=== PATIENT | female | born 1945 | race African-American/Black ===

== ENCOUNTER 2018-07-13 18:21 | Inpatient (IN) | payer MEDICARE, MEDICAID ==
[~2018-07-13] VITALS: Ht 154.9 cm; Wt 67.1 kg
[~2018-07-13 18:21] MED LIST: ALBU2.5V13 NEB; ALPR-341 PO; AMLO10TA4 PO; ASPI-1159 PO; ATOR20TA65 PO; CARV6.2548 PO; CLOP75TA33 PO; DEXL60CA3 PO; FLUT1DIS3 IH; GUAI480S11 PO; MONT10TA24 PO; VALS160T2 PO
[2018-07-13] MEDS ORDERED: FAMOTIDINE 20MG/2ML VIAL IV STA (18:47)
[2018-07-13] MEDS ORDERED: ONDANSETRON HCL 4MG/2ML INJ IV STA (18:47)
[2018-07-13] MEDS ORDERED: SODIUM CHLORIDE 0.9% 1,000 ML IV ONE (18:47)
[2018-07-13] MEDS ORDERED: MORPHINE SULFATE 4 MG/ML CPJ (NOT FOR IM USE) IV STA (18:47)
[2018-07-13 19:32] LABS: BASOPHILS % 0.4 % (0.0-2.0); EOSINOPHILS % 14.1 % (0.0-5.0); HEMATOCRIT. 36.7 % (36.0-48.0); HEMOGLOBIN. 12.1 g/dL (12.0-16.0); LYMPHOCYTES % 22.7 % (20.0-50.0); MEAN PLATELET VOLUME 8.9 fl (7.4-10.4); MONOCYTES % 8.1 % (2.0-8.0); NEUTROPHILS % 54.7 % (40.0-76.0); PLATELET 259 x1000/uL (130-400); RED CELL DISTRIBUTION WIDTH 13.5 % (11.6-14.6)
[2018-07-13 19:37] LABS: INR 1.1; PROTHROMBIN TIME 10.8 sec (9.1-11.1)
[2018-07-13 19:40] LABS: CHLORIDE 107 mEq/L (98-107)
[2018-07-13 21:01] LABS: CLARITY URINE CLEAR (CLEAR); COLOR URINE YELLOW (YELLOW); KETONES URINE NEGATIVE (NEGATIVE); LEUKOCYTE ESTERASE URINE NEGATIVE (NEGATIVE); NITRITE URINE NEGATIVE (NEGATIVE); OCCULT BLOOD URINE NEGATIVE (NEGATIVE); PROTEIN URINE NEGATIVE (NEGATIVE); SPECIFIC GRAVITY URINE 1.004 (1.005-1.030); UROBILINOGEN URINE 0.2 E.U./dL (0.2-1.0)
[2018-07-13] MEDS ORDERED: IOHEXOL-350 100 ML BOTTLE ONE (22:52)
[2018-07-14] VITALS (7 sets, daily range): BP systolic 117–158; BP diastolic 58–82
[2018-07-14] MEDS ORDERED: ALPR-340 PO (02:11)
[2018-07-14] MEDS ORDERED: CARV12.545 PO (02:11)
[2018-07-14] MEDS ORDERED: DEXL30CA3 PO (02:11)
[2018-07-14] MEDS ORDERED: IRBE150T51 PO (02:15)
[2018-07-14] MEDS ORDERED: ALPRAZOLAM 0.5 MG TABLET PO PRN (04:00)
[2018-07-14] MEDS: PANTOPRAZOLE 40MG DR TABLET PO SCH (05:54)
[2018-07-14 05:56] LABS: CHLORIDE 109 mEq/L (98-107)
[2018-07-14 06:00] LABS: PHOSPHORUS 3.2 mg/dL (2.5-4.9)
[2018-07-14 06:02] LABS: LDL CHOLESTEROL 38 mg/dL (5-100)
[2018-07-14 06:03] LABS: HDL CHOLESTEROL 61 mg/dL (40-59)
[2018-07-14 06:07] LABS: BASOPHILS % 0.3 % (0.0-2.0); EOSINOPHILS % 12.6 % (0.0-5.0); HEMATOCRIT. 35.1 % (36.0-48.0); HEMOGLOBIN. 11.8 g/dL (12.0-16.0); LYMPHOCYTES % 18.3 % (20.0-50.0); MEAN CORPUSCULAR HEMOGLOBIN 31.5 pg (28.0-32.0); MEAN CORPUSCULAR VOLUME 93.4 fL (81.0-99.0); MEAN PLATELET VOLUME 8.8 fl (7.4-10.4); MONOCYTES % 6.9 % (2.0-8.0); NEUTROPHILS % 61.9 % (40.0-76.0); PLATELET 256 x1000/uL (130-400); RED BLOOD CELL COUNT 3.76 mill/uL (4.2-5.4); RED CELL DISTRIBUTION WIDTH 13.8 % (11.6-14.6)
[2018-07-14 06:08] LABS: T4 FREE 1.24 ng/dL (0.76-1.46)
[2018-07-14 06:09] LABS: TOTAL IRON BINDING CAPACITY 287 ug/dL (250-450)
[2018-07-14] MEDS: LOSARTAN POTASSIUM 50 MG TABLET PO SCH (08:39)
[2018-07-14] MEDS: CARVEDILOL 12.5MG TABLET PO SCH ×2 (08:39→21:37)
[2018-07-14] MEDS: AMLODIPINE 10MG TABLET PO SCH (08:39)
[2018-07-14] MEDS ORDERED: MAGNESIUM CITRATE 300ML SOLUTION PO PRN (09:00)
[2018-07-14] MEDS ORDERED: NON FORMULARY PATIENT HOME MED EA PO SCH ×2 (09:00)
[2018-07-14] MEDS: ASPIRIN 81MG TABLET PO SCH (12:22)
[2018-07-14] MEDS: CLOPIDOGREL 75MG TABLET PO SCH (12:22)
[2018-07-14] MEDS: ACETAMINOPHEN 325MG TABLET PO PRN (13:19)
[2018-07-14] MEDS: ATORVASTATIN CALCIUM 20MG TABLET PO SCH (21:37)
[2018-07-14] MEDS: MONTELUKAST SODIUM 10MG TABLET PO SCH (21:37)
[2018-07-15] VITALS: BP 111/74
[2018-07-15 04:00] VITALS: BP 111/74
[2018-07-15 06:19] LABS: BASOPHILS % 0.2 % (0.0-2.0); EOSINOPHILS % 7.7 % (0.0-5.0); HEMATOCRIT. 37.9 % (36.0-48.0); HEMOGLOBIN. 12.6 g/dL (12.0-16.0); LYMPHOCYTES % 12.8 % (20.0-50.0); MEAN CORPUSCULAR HEMOGLOBIN 30.9 pg (28.0-32.0); MEAN CORPUSCULAR VOLUME 93.4 fL (81.0-99.0); MONOCYTES % 5.2 % (2.0-8.0); NEUTROPHILS % 74.1 % (40.0-76.0); PLATELET 266 x1000/uL (130-400); RED BLOOD CELL COUNT 4.06 mill/uL (4.2-5.4); RED CELL DISTRIBUTION WIDTH 13.9 % (11.6-14.6)
[2018-07-15] MEDS: PANTOPRAZOLE 40MG DR TABLET PO SCH (06:32)
[2018-07-15 07:29] LABS: CHLORIDE 104 mEq/L (98-107)
[2018-07-15 08:00] VITALS: BP 150/82
[2018-07-15] MEDS: AMLODIPINE 10MG TABLET PO SCH (08:53)
[2018-07-15] MEDS: CLOPIDOGREL 75MG TABLET PO SCH (08:53)
[2018-07-15] MEDS: ASPIRIN 81MG TABLET PO SCH (08:55)
[2018-07-15] MEDS: LOSARTAN POTASSIUM 50 MG TABLET PO SCH (08:55)
[2018-07-15] MEDS: CARVEDILOL 12.5MG TABLET PO SCH ×2 (08:55→21:03)
[2018-07-15] MEDS: IPRATROPIUM/ALBUTEROL 0.5-3(2.5)MG/3ML NEB HHN PRN (12:01)
[2018-07-15 12:10] VITALS: BP 125/77
[2018-07-15] MEDS: ONDANSETRON HCL 4MG/2ML INJ IV PRN (12:17)
[2018-07-15 16:00] VITALS: BP 148/67
[2018-07-15 20:00] VITALS: BP 131/59
[2018-07-15] MEDS: MONTELUKAST SODIUM 10MG TABLET PO SCH (21:01)
[2018-07-15] MEDS: ATORVASTATIN CALCIUM 20MG TABLET PO SCH (21:01)
[2018-07-16] VITALS: BP 111/54
[2018-07-16 04:00] VITALS: BP 136/73
[2018-07-16 06:03] LABS: CHLORIDE 104 mEq/L (98-107)
[2018-07-16 06:12] LABS: PHOSPHORUS 3.2 mg/dL (2.5-4.9)
[2018-07-16 06:34] LABS: HEMATOCRIT. 34.2 % (36.0-48.0); HEMOGLOBIN. 11.4 g/dL (12.0-16.0); MEAN CORPUSCULAR HEMOGLOBIN 31.2 pg (28.0-32.0); MEAN CORPUSCULAR VOLUME 93.3 fL (81.0-99.0); PLATELET 240 x1000/uL (130-400); RED BLOOD CELL COUNT 3.66 mill/uL (4.2-5.4); RED CELL DISTRIBUTION WIDTH 13.5 % (11.6-14.6)
[2018-07-16] MEDS: PANTOPRAZOLE 40MG DR TABLET PO SCH (07:00)
[2018-07-16 08:00] VITALS: BP 127/69
[2018-07-16 08:42] LABS: PLATELET ESTIMATE NORMAL
[2018-07-16] MEDS: AMLODIPINE 10MG TABLET PO SCH (08:59)
[2018-07-16] MEDS: CLOPIDOGREL 75MG TABLET PO SCH (08:59)
[2018-07-16] MEDS: CARVEDILOL 12.5MG TABLET PO SCH ×2 (09:00→21:28)
[2018-07-16] MEDS: LOSARTAN POTASSIUM 50 MG TABLET PO SCH (09:00)
[2018-07-16] MEDS: ASPIRIN 81MG TABLET PO SCH (09:00)
[2018-07-16 12:00] VITALS: BP 138/61
[2018-07-16] MEDS: ONDANSETRON HCL 4MG/2ML INJ IV PRN (12:42)
[2018-07-16] MEDS: ACETAMINOPHEN 325MG TABLET PO PRN (13:59)
[2018-07-16 16:11] VITALS: BP 135/64
[2018-07-16] MEDS ORDERED: MAGNESIUM 4 G PREMIX 100 ML IV NR (18:00)
[2018-07-16 20:00] VITALS: BP 137/59
[2018-07-16] MEDS: MONTELUKAST SODIUM 10MG TABLET PO SCH (21:28)
[2018-07-16] MEDS: ATORVASTATIN CALCIUM 20MG TABLET PO SCH (21:28)
[2018-07-17] VITALS: BP 145/69
[2018-07-17 04:00] VITALS: BP 122/49
[2018-07-17 06:43] LABS: HEMATOCRIT. 34.5 % (36.0-48.0); HEMOGLOBIN. 11.8 g/dL (12.0-16.0); MEAN CORPUSCULAR HEMOGLOBIN 31.5 pg (28.0-32.0); MEAN CORPUSCULAR VOLUME 92.3 fL (81.0-99.0); MEAN PLATELET VOLUME 8.9 fl (7.4-10.4); PLATELET 254 x1000/uL (130-400); RED BLOOD CELL COUNT 3.73 mill/uL (4.2-5.4); RED CELL DISTRIBUTION WIDTH 13.4 % (11.6-14.6)
[2018-07-17] MEDS: PANTOPRAZOLE 40MG DR TABLET PO SCH (06:48)
[2018-07-17 06:59] LABS: CHLORIDE 103 mEq/L (98-107)
[2018-07-17 07:03] LABS: AMYLASE 31 IU/L (25-115)
[2018-07-17 08:00] VITALS: BP 140/69
[2018-07-17] MEDS: AMLODIPINE 10MG TABLET PO SCH (09:26)
[2018-07-17] MEDS: ASPIRIN 81MG TABLET PO SCH (09:26)
[2018-07-17] MEDS: CARVEDILOL 12.5MG TABLET PO SCH ×2 (09:26→21:05)
[2018-07-17] MEDS: LOSARTAN POTASSIUM 50 MG TABLET PO SCH (09:26)
[2018-07-17] MEDS: CLOPIDOGREL 75MG TABLET PO SCH (09:26)
[2018-07-17] MEDS: HYDROMORPHONE HCL/PF 2MG/ML CPJ IV PRN (11:18)
[2018-07-17] MEDS ORDERED: DIATR MEGLU/DIATRIZOATE SOLN 30ML PO NR (11:45)
[2018-07-17 12:00] VITALS: BP 138/73
[2018-07-17] MEDS: ONDANSETRON HCL 4MG/2ML INJ IV PRN (12:47)
[2018-07-17 13:34] LABS: PLATELET ESTIMATE NORMAL
[2018-07-17 16:00] VITALS: BP 130/70
[2018-07-17 20:00] VITALS: BP 139/62
[2018-07-17] MEDS: MONTELUKAST SODIUM 10MG TABLET PO SCH (21:04)
[2018-07-17] MEDS: ATORVASTATIN CALCIUM 20MG TABLET PO SCH (21:05)
[2018-07-18] VITALS: BP 138/57
[2018-07-18] MEDS: IPRATROPIUM/ALBUTEROL 0.5-3(2.5)MG/3ML NEB HHN PRN (01:01)
[2018-07-18 04:00] VITALS: BP 129/59
[2018-07-18] MEDS: PANTOPRAZOLE 40MG DR TABLET PO SCH ×2 (06:36→07:11)
[2018-07-18 06:58] LABS: HEMATOCRIT. 36.2 % (36.0-48.0); HEMOGLOBIN. 12.1 g/dL (12.0-16.0); MEAN CORPUSCULAR VOLUME 92.9 fL (81.0-99.0); MEAN PLATELET VOLUME 8.7 fl (7.4-10.4); PLATELET 248 x1000/uL (130-400); RED BLOOD CELL COUNT 3.89 mill/uL (4.2-5.4); RED CELL DISTRIBUTION WIDTH 13.4 % (11.6-14.6)
[2018-07-18 07:14] LABS: CHLORIDE 103 mEq/L (98-107)
[2018-07-18 08:00] VITALS: BP 149/79
[2018-07-18] MEDS: ASPIRIN 81MG TABLET PO SCH (10:14)
[2018-07-18] MEDS: LOSARTAN POTASSIUM 50 MG TABLET PO SCH (10:14)
[2018-07-18] MEDS: AMLODIPINE 10MG TABLET PO SCH (10:15)
[2018-07-18] MEDS: CLOPIDOGREL 75MG TABLET PO SCH (10:15)
[2018-07-18] MEDS: CARVEDILOL 12.5MG TABLET PO SCH (10:15)
[2018-07-18 12:00] VITALS: BP 129/63
[2018-07-18] MEDS: HYDROMORPHONE HCL/PF 2MG/ML CPJ IV PRN (12:28)
[2018-07-18] MEDS: ONDANSETRON HCL 4MG/2ML INJ IV PRN (12:33)
[2018-07-18 14:06] LABS: PLATELET ESTIMATE NORMAL
[2018-07-18] MEDS ORDERED: IOHEXOL-350 100 ML BOTTLE ONE (15:29)
[2018-07-18 17:35] VITALS: BP 129/63
[2018-07-19 13:09] LABS: 25-HYDROXY VITAMIN D3 31 ng/mL (.)
== END 2018-07-18 18:00 | disposition home or self-care (01) | DRG 394 ==
LOC: ER 18:21 → 5WST 23:25
PROVIDERS: ADMIT Internal Medicine; ATTEND Internal Medicine
DX: K55.059 Acute (reversible) ischemia of intestine, part and extent unspecified (principal); E44.1 Mild protein-calorie malnutrition; K27.9 Peptic ulcer, site unspecified, unspecified as acute or chronic, without hemorrhage or perforation; K21.9 Gastro-esophageal reflux disease without esophagitis; I11.9 Hypertensive heart disease without heart failure; J44.9 Chronic obstructive pulmonary disease, unspecified; I25.10 Atherosclerotic heart disease of native coronary artery without angina pectoris; D64.9 Anemia, unspecified; E78.5 Hyperlipidemia, unspecified; K29.70 Gastritis, unspecified, without bleeding; I73.9 Peripheral vascular disease, unspecified; D72.1 Eosinophilia; I70.0 Atherosclerosis of aorta; F41.9 Anxiety disorder, unspecified; I77.1 Stricture of artery; Z82.49 Family history of ischemic heart disease and other diseases of the circulatory system; Z86.79 Personal history of other diseases of the circulatory system; Z95.5 Presence of coronary angioplasty implant and graft; Z79.82 Long term (current) use of aspirin; Z79.02 Long term (current) use of antithrombotics/antiplatelets; Z79.899 Other long term (current) drug therapy; Z87.891 Personal history of nicotine dependence; K55.1 Chronic vascular disorders of intestine
CPT/HCPCS: 36415; 74174; 75635; 76705; 80048; 80053; 80061; 80069; 80076; 81003; 82150; 82248; 82306; 83540; 83550; 83605; 83690; 83735; 84100; 84439; 84443; 84480; 84484; 84550; 85025; 85610; 85651; 93005; 93306; 93971; 94640; 96361; 96374; 96375; 97162; 99291; C1893; J1170; J2270; J2405; J3475; J3490; J7030; J7050; J7620; Q9963; Q9967

== ENCOUNTER 2019-04-26 20:01 | Inpatient (IN) | payer MEDICARE, MEDICAID ==
[~2019-04-26] VITALS: Ht 157.5 cm; Wt 68.5 kg
[~2019-04-26 20:01] MED LIST changes: +ALPR-340 PO; -ALPR-341 PO; -ASPI-1159 PO; +ASPI-1393 PO; +CARV12.545 PO; -CARV6.2548 PO; +DEXL30CA3 PO; -DEXL60CA3 PO; -GUAI480S11 PO; +IRBE150T51 PO; -VALS160T2 PO
[2019-04-26] MEDS ORDERED: ONDANSETRON HCL 4MG/2ML INJ IV STA (21:29)
[2019-04-26] MEDS ORDERED: MORPHINE SULFATE 4 MG/ML CPJ (NOT FOR IM USE) IV STA (21:29)
[2019-04-26] MEDS ORDERED: PIPERACILLIN/TAZ 3.375G PREMIX 50 ML IV ONE (21:30)
[2019-04-26] MEDS ORDERED: METRONIDAZOLE 500 MG PREMIX 100 ML IV ONE (21:30)
[2019-04-26 23:24] LABS: BASOPHILS % 0.2 % (0.0-2.0); EOSINOPHILS % 5.9 % (0.0-5.0); HEMATOCRIT. 39.8 % (36.0-48.0); HEMOGLOBIN. 13.1 g/dL (12.0-16.0); LYMPHOCYTES % 11.1 % (20.0-50.0); MEAN CORPUSCULAR HEMOGLOBIN 31.1 pg (28.0-32.0); MEAN CORPUSCULAR VOLUME 94.5 fL (81.0-99.0); MEAN PLATELET VOLUME 8.8 fl (7.4-10.4); NEUTROPHILS % 78.8 % (40.0-76.0); PLATELET 235 x1000/uL (130-400); RED BLOOD CELL COUNT 4.21 mill/uL (4.2-5.4)
[2019-04-26 23:31] LABS: CHLORIDE 106 mEq/L (98-107)
[2019-04-26] MEDS ORDERED: METHYLPREDNISOLONE SOD SUCC 125 MG/2 ML VIAL IV STA (23:32)
[2019-04-26 23:33] LABS: INR 1.1; PARTIAL THROMBOPLASTIN TIME 24.3 sec (23.4-31.0)
[2019-04-26 23:35] LABS: ETHANOL BLOOD < 10 mg/dL
[2019-04-26] MEDS ORDERED: IPRATROPIUM/ALBUTEROL 0.5-3(2.5)MG/3ML NEB HHN ONE (23:45)
[2019-04-27 00:33] LABS: CLARITY URINE CLEAR (CLEAR); COLOR URINE YELLOW (YELLOW); KETONES URINE TRACE (NEGATIVE); LEUKOCYTE ESTERASE URINE NEGATIVE (NEGATIVE); NITRITE URINE NEGATIVE (NEGATIVE); OCCULT BLOOD URINE NEGATIVE (NEGATIVE); PROTEIN URINE NEGATIVE (NEGATIVE); UROBILINOGEN URINE 0.2 E.U./dL (0.2-1.0)
[2019-04-27 01:35] VITALS: BP 135/69
[2019-04-27] MEDS ORDERED: ACETAMINOPHEN 325MG TABLET PO PRN (03:45)
[2019-04-27] MEDS ORDERED: ONDANSETRON HCL 4MG/2ML INJ IV PRN (03:45)
[2019-04-27] MEDS ORDERED: HYDROMORPHONE HCL/PF 2MG/ML CPJ IV PRN (03:45)
[2019-04-27] MEDS ORDERED: NON FORMULARY PATIENT HOME MED XX SCH (03:45)
[2019-04-27] MEDS ORDERED: AZIL40TA PO (03:51)
[2019-04-27 04:00] VITALS: BP 158/76
[2019-04-27 04:17] LABS: *AMPHETAMINES SCREEN URINE NEGATIVE (NEGATIVE); *BARBITURATES SCREEN URINE NEGATIVE (NEGATIVE); *BENZODIAZEPINES SCREEN URINE NEGATIVE (NEGATIVE); *COCAINE SCREEN URINE NEGATIVE (NEGATIVE); CANNABINOID URINE SCREEN NEGATIVE (NEGATIVE); METHADONE URINE SCREEN NEGATIVE (NEGATIVE); OPIATES URINE SCREEN PRESUMTIVE POSITIVE (NEGATIVE); PHENCYCLIDINE URINE SCREEN NEGATIVE (NEGATIVE)
[2019-04-27] MEDS: DEXT 5%/0.45% NACL KCL 30MEQ/L 1,000 ML IV SCH ×2 (04:23→13:43)
[2019-04-27 08:00] VITALS: BP 173/84
[2019-04-27] MEDS: AMLODIPINE 10MG TABLET PO SCH (08:50)
[2019-04-27] MEDS: PANTOPRAZOLE 40MG DR TABLET PO SCH (08:53)
[2019-04-27] MEDS: CARVEDILOL 12.5MG TABLET PO SCH ×2 (08:53→20:36)
[2019-04-27] MEDS ORDERED: AZILSARTAN MEDOXOMIL 40 MG PO SCH (09:00)
[2019-04-27] MEDS ORDERED: DEXLANSOPRAZOLE 30 MG PO SCH (09:00)
[2019-04-27 09:57] LABS: BASOPHILS % 0.2 % (0.0-2.0); EOSINOPHILS % 0.7 % (0.0-5.0); HEMATOCRIT. 34.6 % (36.0-48.0); HEMOGLOBIN. 11.7 g/dL (12.0-16.0); LYMPHOCYTES % 11.9 % (20.0-50.0); MEAN CORPUSCULAR HEMOGLOBIN 31.5 pg (28.0-32.0); MEAN CORPUSCULAR VOLUME 92.9 fL (81.0-99.0); MONOCYTES % 1.2 % (2.0-8.0); PLATELET 226 x1000/uL (130-400); RED BLOOD CELL COUNT 3.73 mill/uL (4.2-5.4); RED CELL DISTRIBUTION WIDTH 13.2 % (11.6-14.6)
[2019-04-27 12:37] LABS: CHLORIDE 109 mEq/L (98-107)
[2019-04-27 12:45] LABS: LDL CHOLESTEROL 44 mg/dL (5-100)
[2019-04-27 12:46] LABS: HDL CHOLESTEROL 61 mg/dL (40-59); T4 FREE 1.12 ng/dL (0.76-1.46); TOTAL IRON BINDING CAPACITY 326 ug/dL (250-450)
[2019-04-27 12:48] VITALS: BP 160/79
[2019-04-27] MEDS ORDERED: FOLIC ACID 1 MG, THIAMINE HCL 100 MG, MVI, ADULT NO.1 10 ML in DEXT 5%/0.45% NACL 1000M... IV SCH ×4 (14:00)
[2019-04-27 16:00] VITALS: BP 153/77
[2019-04-27 20:00] VITALS: BP 179/76
[2019-04-27] MEDS: BUDESONIDE 0.5MG/2ML NEB HHN SCH (20:18)
[2019-04-27] MEDS: ALBUTEROL (0.083%) 2.5MG/3ML NEB HHN SCH (20:22)
[2019-04-27] MEDS: MONTELUKAST SODIUM 10MG TABLET PO SCH (20:36)
[2019-04-27] MEDS: ATORVASTATIN CALCIUM 20MG TABLET PO SCH (20:36)
[2019-04-28] VITALS (7 sets, daily range): BP systolic 118–173; BP diastolic 56–76
[2019-04-28] MEDS ORDERED: DIPHENHYDRAMINE 50MG/ML VIAL IV NR (00:30)
[2019-04-28] MEDS ORDERED: AMLODIPINE 10MG TABLET PO NR (00:30)
[2019-04-28] MEDS ORDERED: FUROSEMIDE 20MG/2ML VIAL IVP NR (00:30)
[2019-04-28] MEDS: ALBUTEROL (0.083%) 2.5MG/3ML NEB HHN SCH ×5 (01:52→20:57)
[2019-04-28 01:59] LABS: CLARITY URINE CLEAR (CLEAR); COLOR URINE YELLOW (YELLOW); KETONES URINE NEGATIVE (NEGATIVE); LEUKOCYTE ESTERASE URINE NEGATIVE (NEGATIVE); NITRITE URINE NEGATIVE (NEGATIVE); OCCULT BLOOD URINE NEGATIVE (NEGATIVE); PH URINE 6.5 (4.5-8.0); PROTEIN URINE NEGATIVE (NEGATIVE); SPECIFIC GRAVITY URINE 1.004 (1.005-1.030); UROBILINOGEN URINE 0.2 E.U./dL (0.2-1.0)
[2019-04-28 09:01] LABS: BASOPHILS % 0.2 % (0.0-2.0); EOSINOPHILS % 1.3 % (0.0-5.0); HEMATOCRIT. 36.2 % (36.0-48.0); HEMOGLOBIN. 12.2 g/dL (12.0-16.0); LYMPHOCYTES % 16.9 % (20.0-50.0); MEAN CORPUSCULAR HEMOGLOBIN 31.2 pg (28.0-32.0); MEAN CORPUSCULAR VOLUME 92.7 fL (81.0-99.0); MONOCYTES % 5.1 % (2.0-8.0); NEUTROPHILS % 76.5 % (40.0-76.0); PLATELET 254 x1000/uL (130-400); RED BLOOD CELL COUNT 3.91 mill/uL (4.2-5.4); RED CELL DISTRIBUTION WIDTH 13.8 % (11.6-14.6)
[2019-04-28] MEDS: PANTOPRAZOLE 40MG DR TABLET PO SCH (09:01)
[2019-04-28] MEDS: CARVEDILOL 12.5MG TABLET PO SCH ×2 (09:02→20:36)
[2019-04-28 09:31] LABS: CHLORIDE 109 mEq/L (98-107)
[2019-04-28] MEDS: BUDESONIDE 0.5MG/2ML NEB HHN SCH ×2 (09:32→20:57)
[2019-04-28 09:42] LABS: PHOSPHORUS 2.5 mg/dL (2.5-4.9)
[2019-04-28 09:44] LABS: LDL CHOLESTEROL 36 mg/dL (5-100)
[2019-04-28 09:46] LABS: HDL CHOLESTEROL 69 mg/dL (40-59)
[2019-04-28] MEDS ORDERED: NON FORMULARY PATIENT HOME MED XX SCH (17:45)
[2019-04-28] MEDS: MONTELUKAST SODIUM 10MG TABLET PO SCH (20:35)
[2019-04-28] MEDS: ATORVASTATIN CALCIUM 20MG TABLET PO SCH (20:35)
[2019-04-29] VITALS: BP 135/65
[2019-04-29] MEDS: ALBUTEROL (0.083%) 2.5MG/3ML NEB HHN SCH ×3 (02:00→14:35)
[2019-04-29 04:00] VITALS: BP 150/87
[2019-04-29 07:36] VITALS: BP 164/84
[2019-04-29] MEDS: CARVEDILOL 12.5MG TABLET PO SCH (08:45)
[2019-04-29] MEDS: AMLODIPINE 10MG TABLET PO SCH (08:46)
[2019-04-29] MEDS ORDERED: FAMOTIDINE 20MG TABLET PO SCH (09:00)
[2019-04-29] MEDS ORDERED: ASPIRIN 81MG EC TABLET PO SCH (09:00)
[2019-04-29] MEDS ORDERED: AMLODIPINE 10MG TABLET PO SCH (09:00)
[2019-04-29] MEDS: BUDESONIDE 0.5MG/2ML NEB HHN SCH (09:16)
[2019-04-29] MEDS ORDERED: NIFEDIPINE XL 60MG TAB PO SCH (11:30)
[2019-04-29 16:30] VITALS: BP 172/88
[2019-04-29 16:31] VITALS: BP 173/92
[2019-05-01 04:12] LABS: 25-HYDROXY VITAMIN D3 20 ng/mL (.)
== END 2019-04-29 17:20 | disposition home or self-care (01) | DRG 918 ==
LOC: ER 21:00 → 7WST 04-27 00:11 → EDBEDREQDT 04-27 00:20 → EDBEDREQTM 04-27 00:20 → EDBEDREQ 04-27 00:20 → ENRESERV 04-27 00:24
PROVIDERS: ADMIT Internal Medicine; ATTEND Internal Medicine
DX: T62.91XA Toxic effect of unspecified noxious substance eaten as food, accidental (unintentional), initial encounter (principal); J44.9 Chronic obstructive pulmonary disease, unspecified; E78.5 Hyperlipidemia, unspecified; I73.9 Peripheral vascular disease, unspecified; E86.0 Dehydration; K52.9 Noninfective gastroenteritis and colitis, unspecified; I11.9 Hypertensive heart disease without heart failure; I25.10 Atherosclerotic heart disease of native coronary artery without angina pectoris; Z90.710 Acquired absence of both cervix and uterus; Z95.5 Presence of coronary angioplasty implant and graft; Z79.82 Long term (current) use of aspirin; Z79.899 Other long term (current) drug therapy; Y92.9 Unspecified place or not applicable
CPT/HCPCS: 36415; 71045; 74176; 80061; 80069; 80076; 80305; 80320; 82248; 82306; 82310; 83036; 83540; 83550; 83605; 83735; 83880; 84100; 84439; 84443; 84481; 84484; 84550; 85651; 86677; 87015; 87045; 87427; 87449; 93005; 93970; 94640; 96374; 96375; 99285; C1893; J1200; J1940; J2270; J2405; J2543; J2930; J3411; J3480; J3490; J7611; J7620; J7626; G0480

== ENCOUNTER 2021-11-03 10:08 | Emergency (ER) | payer MEDICARE, MEDICAID ==
[~2021-11-03] VITALS: Ht 152.4 cm; Wt 66.0 kg
[~2021-11-03 10:08] MED LIST changes: -ASPI-1393 PO; +ASPI-1497 PO; +AZIL40TA PO; -MONT10TA24 PO; +MONT10TA32 PO
[2021-11-03 13:42] LABS: MEAN CORPUSCULAR HEMOGLOBIN 30.6 pg (28.0-32.0); MEAN PLATELET VOLUME 8.8 fl (7.4-10.4); PLATELET 253 x1000/uL (130-400); RED BLOOD CELL COUNT 4.24 mill/uL (4.2-5.4); RED CELL DISTRIBUTION WIDTH 14.8 % (11.6-14.6)
[2021-11-03 13:44] LABS: CHLORIDE 111 mEq/L (98-107)
[2021-11-03 14:03] LABS: ATYPICAL LYMPHOCYTES 1; PLATELET ESTIMATE NORMAL
[2021-11-03 14:22] VITALS: BP 191/90
[2021-11-03] MEDS ORDERED: IOHEXOL-350 100 ML BOTTLE ONE (15:21)
== END 2021-11-03 16:37 | disposition home or self-care (01) ==
LOC: ER 10:08
DX: R07.89 Other chest pain (principal); J44.1 Chronic obstructive pulmonary disease with (acute) exacerbation; I10 Essential (primary) hypertension; Z79.899 Other long term (current) drug therapy
CPT/HCPCS: 36415; 71045; 71275; 80053; 83605; 83880; 84484; 85025; 85379; 93005; 99285; Q9967

== ENCOUNTER 2022-02-08 10:10 | Emergency (ER) | payer MEDICARE, MEDICAID ==
[~2022-02-08] VITALS: Ht 157.5 cm; Wt 63.0 kg
[2022-02-08 11:25] VITALS: BP 170/89
[2022-02-08 12:17] LABS: HEMOGLOBIN. 12.9 g/dL (12.0-16.0); MEAN CORPUSCULAR HEMOGLOBIN 30.4 pg (28.0-32.0); MEAN CORPUSCULAR VOLUME 94.7 fL (81.0-99.0); MEAN PLATELET VOLUME 8.7 fl (7.4-10.4); PLATELET 246 x1000/uL (130-400); RED BLOOD CELL COUNT 4.22 mill/uL (4.2-5.4); RED CELL DISTRIBUTION WIDTH 14.3 % (11.6-14.6)
[2022-02-08 12:30] LABS: CHLORIDE 110 mEq/L (98-107)
[2022-02-08 13:12] LABS: PLATELET ESTIMATE NORMAL
[2022-02-08 16:07] LABS: CLARITY URINE CLEAR (CLEAR); COLOR URINE YELLOW (YELLOW); KETONES URINE 1+ (NEGATIVE); LEUKOCYTE ESTERASE URINE NEGATIVE (NEGATIVE); NITRITE URINE NEGATIVE (NEGATIVE); OCCULT BLOOD URINE NEGATIVE (NEGATIVE); PH URINE 5.5 (4.5-8.0); PROTEIN URINE NEGATIVE (NEGATIVE); SPECIFIC GRAVITY URINE 1.012 (1.005-1.030); UROBILINOGEN URINE 0.2 E.U./dL (0.2-1.0)
== END 2022-02-08 17:26 | disposition home or self-care (01) ==
LOC: ER 10:10
DX: R10.13 Epigastric pain (principal); R94.39 Abnormal result of other cardiovascular function study; I11.0 Hypertensive heart disease with heart failure; I50.9 Heart failure, unspecified; J44.9 Chronic obstructive pulmonary disease, unspecified; I25.10 Atherosclerotic heart disease of native coronary artery without angina pectoris
CPT/HCPCS: 36415; 71045; 80053; 81003; 83880; 84484; 85025; 93005; 99285